=== PATIENT | female | born 1985 | race African-American/Black ===

== ENCOUNTER 2017-04-24 16:32 | Emergency (ER) | payer OTHER ==
--- NOTE | 2017-04-24 17:50 | ED ---
Back Pain - HPI Summary HPI Summary: 31F presents with back and tailbone pain today s/p falling down some stairs. She is able to ambulate. She took ibuprofen for her pain and does not want anything else. She denies any loss of bowel or bladder. She denies any saddle anaesthesia. She denies any pain down the legs. She denies any numbness or tingling. - History of Current Complaint Chief Complaint: EDBackInjuryPain Stated Complaint: FALL/BACK PAIN Time Seen by Provider: 04/24/17 16:55 Hx Last Menstrual Period: 10/20/16 Pain Intensity: 10 - Allergies/Home Medications Allergies/Adverse Reactions: Allergies Allergy/AdvReac Type Severity Reaction Status Date / Time Penicillins [PCN] Allergy Hives/Diff. Verified 09/06/16 12:28 Breathing/I tching Sulfa Antibiotics Allergy Hives Verified 10/22/16 16:02 PMH/Surg Hx/FS Hx/Imm Hx Endocrine/Hematology History: Reports: Hx Thyroid Disease - cysts Denies: Hx Diabetes Cardiovascular History: Denies: Hx Hypertension, Hx Pacemaker/ICD Respiratory History: Denies: Hx Asthma, Hx Chronic Obstructive Pulmonary Disease (COPD) GI History: Denies: Hx Ulcer Sensory History: Denies: Hx Hearing Aid Psychiatric History: Denies: Hx Panic Disorder - Surgical History Surgery Procedure, Year, and Place: ,[place] [facility] [place] Disease History: No Infectious Disease History: Denies: Hx Hepatitis, Hx Human Immunodeficiency Virus (HIV), History Other Infectious Disease, Traveled Outside the [place] in Last 30 Days - Family History Known Family History: Positive: Cardiac Disease - Social History Alcohol Use: None Hx Substance Use: No Substance Use Type: Reports: None Hx Tobacco Use: Yes Smoking Status (MU): Former Smoker Type: Cigarettes Amount Used/How Often: one pack weekly Review of Systems Negative: Fever Negative: Chest Pain Negative: Shortness Of Breath Positive: Myalgia - back pain All Other Systems Reviewed And Are Negative: Yes Physical Exam Triage Information Reviewed: Yes Vital Signs On Initial Exam: Initial Vitals Temp Pulse Resp BP Pulse Ox 98.6 F 97 20 119/67 100 04/24/17 16:47 04/24/17 16:47 04/24/17 16:47 04/24/17 16:47 04/24/17 16:47 Vital Signs Reviewed: Yes Appearance: Positive: Well-Appearing Skin: Positive: Warm, Dry Head/Face: Positive: Normal Head/Face Inspection Eyes: Positive: Normal, Conjunctiva Clear Respiratory/Lung Sounds: Positive: Clear to Auscultation, Breath Sounds Present Cardiovascular: Positive: Normal, RRR Musculoskeletal: Positive: Limited @ - back due to pain, Other - tenderness across lower back and sacrum Diagnostics - Vital Signs Vital Signs Temp Pulse Resp BP Pulse Ox 04/24/17 16:49 98.6 F 99 20 119/67 100 04/24/17 16:47 98.6 F 97 20 119/67 100 - Laboratory Lab Statement: Any lab studies that have been ordered have been reviewed, and results considered in the medical decision making process. - Radiology lumbar Xray Interpretation: No Acute Changes - IMPRESSION: Straightening of the normal lordosis. Mild dextroscoliosis centered at L3-L4. Radiology Interpretation Completed By: Radiologist sacrum Xray Interpretation: No Acute Changes - IMPRESSION: No fracture of the sacrum or coccyx is noted Radiology Interpretation Completed By: Radiologist Back Pain Course/Dx - Course Course Of Treatment: 31F presents with back pain s/p falling down stairs today. She denies any other injury. She is able to ambulate. she took some ibuprofen. neg SLR, tenderness across lower back. xray sacrum normal and lumbar normal. told to ice and continue ibuprofen. patient understands and agrees with plan - Diagnoses Differential Diagnosis/HQI/PQRI: Positive: Fracture, Herniated Disc, Strain, Sprain Provider Diagnoses: Back pain Discharge - Discharge Plan Condition: Good Disposition: HOME Patient Education Materials: Back Pain (ED) Forms: *Work Release Referrals: Zenia Farias MD [Primary Care Provider] - Additional Instructions: Use ibuprofen or Tylenol for pain every 6 hours ice/heat area, move as much as possible Can rest for one day and then need to move back Follow up with primary within 7 days Return to ED if unable to ambulate or develop any new or worsening symptoms
--- NOTE | 2017-04-24 18:05 | RAD ---
Indication: Tailbone injury. 2 views of the sacrum and coccyx demonstrates no fracture. Disc spaces all well-preserved. Pedicles appear intact. IMPRESSION: No fracture of the sacrum or coccyx is noted.
--- NOTE | 2017-04-24 18:09 | RAD ---
Indication: Back pain. 3 views of lumbar spine demonstrates mild dextroscoliosis centered at L3-L4. Vertebral bodies appear normal in height. Straightening of the normal lordosis is noted. Disc spaces all well-preserved. IMPRESSION: Straightening of the normal lordosis. Mild dextroscoliosis centered at L3-L4.
[2017-04-24 19:10] VITALS: BP 108/64
== END 2017-04-24 19:08 | disposition home or self-care (01) ==
LOC: ED 16:32
DX: M54.9 Dorsalgia, unspecified (principal); Z87.891 Personal history of nicotine dependence
CPT/HCPCS: 72100; 72220; 99282

== ENCOUNTER 2017-11-12 14:57 | Emergency (ER) | payer OTHER ==
[2017-11-12 15:17] VITALS: BP 106/55
--- NOTE | 2017-11-12 16:03 | UC ---
Complaint Female HPI - HPI Summary HPI Summary: Patient presents with an unremarkable past medial history. She presents today with complaints of increased white vaginal discharge, and vaginal itching. She states her symptoms developed after condom use, and also she is completing her period. She denies abdominal or pelvic pain, fever, chills, nausea, or vomiting. - History Of Current Complaint Chief Complaint: UCGU Stated Complaint: IRRITATED URINATION Time Seen by Provider: 11/12/17 15:21 Hx Obtained From: Patient Hx Last Menstrual Period: 1week Onset/Duration: Sudden Onset, Lasting Days Timing: Constant Character: Not Applicable Aggravating Factor(s): [place] Associated Signs And Symptoms: Positive: Negative - Risk Factors Ectopic Risk Factor: Negative - Allergies/Home Medications Allergies/Adverse Reactions: Allergies Allergy/AdvReac Type Severity Reaction Status Date / Time Penicillins [PCN] Allergy Hives/Diff. Verified 11/12/17 15:17 Breathing/I tching Sulfa Antibiotics Allergy Hives Verified 11/12/17 15:17 PMH/Surg Hx/FS Hx/Imm Hx Previously Healthy: Yes - Surgical History Surgical History: Yes Surgery Procedure, Year, and Place: ,[place] [facility] [place] - Family History Known Family History: Positive: Cardiac Disease - Social History Occupation: Employed Full-time Lives: Alone Alcohol Use: socially Substance Use Type: None Smoking Status (MU): Former Smoker Type: Cigarettes Amount Used/How Often: one pack weekly Household Exposure Type: Cigarettes - Immunization History Most Recent Influenza Vaccination: declined Most Recent Tetanus Shot: unk Review of Systems Constitutional: Negative Skin: Negative Eyes: Negative ENT: Negative Respiratory: Negative Cardiovascular: Negative Gastrointestinal: Negative Genitourinary: Vaginal/Penile Discharge Motor: Negative Is Patient Immunocompromised?: No All Other Systems Reviewed And Are Negative: Yes Physical Exam Triage Information Reviewed: Yes Appearance: Well-Appearing Vital Signs: Initial Vital Signs Temp 98.3 F 11/12/17 15:11 Pulse 87 11/12/17 15:11 Resp 19 11/12/17 15:11 BP 106/55 11/12/17 15:11 Pulse Ox 100 11/12/17 15:11 Vital Signs Reviewed: Yes Eye Exam: Normal ENT Exam: Normal Neck exam: Normal Neck: Positive: 1 Respiratory Exam: Normal Cardiovascular Exam: Normal Abdominal Exam: Normal Abdomen Description: Positive: Other: - vaginal exam; external genitalia without herpetic rashes, excoration, or abrasions. internal vaginal exam reveals small amount of dark red blood in the vagina. cervix closed, no adenexa tenderness. white plagues noted on vaginal dunlap. cultures obtained and are pending. Musculoskeletal Exam: Normal Neurological Exam: Normal Psychological Exam: Normal Skin Exam: Normal Complaint Female Dx - Course Course Of Treatment: Patient presents with complaints of increased white vaginal discharge. SHe thinks she has a yeast infection. Vaginal exam consistent with yeast infection and the patient was treated with dilfucan 150 mg once. UA/ Urine hcg were obtained and were negative. The results were discussed with the patient. - Differential Dx/Diagnosis Differential Diagnosis/HQI/PQRI: Other - yeast infection Provider Diagnoses: yeast infection Discharge - Discharge Plan Condition: Stable Disposition: HOME Prescriptions: Fluconazole 150 MG (NF) [Diflucan 150 mg (NF)] 150 mg PO ONCE #2 tab Patient Education Materials: Vulvovaginal Candidiasis (ED) Referrals: Rudy Guerrero NP [Primary Care Provider] -
--- NOTE | 2017-11-13 20:45 | UC ---
- Progress Note Progress Note: Pt with + E. Coli in urine - RX Macrobid to pharmacy + Gardnerella - Flagyl to pharmacy - please give pt ETOH precaution sensitivity for urine pending Julianj 11/13/2017 Course/Dx - Course Course Of Treatment: Patient presents with complaints of increased white vaginal discharge. SHe thinks she has a yeast infection. Vaginal exam consistent with yeast infection and the patient was treated with dilfucan 150 mg once. UA/ Urine hcg were obtained and were negative. The results were discussed with the patient.
== END 2017-11-12 16:05 | disposition home or self-care (01) ==
LOC: UCEAST 14:57
DX: B37.3 Candidiasis of vulva and vagina (principal); R30.9 Painful micturition, unspecified; Z88.0 Allergy status to penicillin; Z87.891 Personal history of nicotine dependence
CPT/HCPCS: 81003; 81025; 87077; 87086; 87186; 87480; 87491; 87510; 87591; 87661; 99212; G0463

== ENCOUNTER 2018-01-26 09:36 | Emergency (ER) | payer OTHER ==
[2018-01-26 09:48] VITALS: BP 119/64
--- NOTE | 2018-01-26 14:32 | UC ---
Palomo Rojas Jennifer, scribed for Sofie Cochran DO on 01/26/18 at 1028 . Complaint Female HPI - HPI Summary HPI Summary: The patient is a 32 year old female who complains of vaginal irritation that began four days ago. The patient reports the irritation as burning and itching on the inside and outside of the vagina. She rates the pain a 5/10 today but says the pain is better in the morning and worsens throughout the evening. The patient also reports vaginal discharge that is thick and white but not odorous. She adds there is only dysuria when there is irritation, which is usually in the evening. The patient denies changes in frequency, color, odor of urine, vomiting, fever, and abdominal pain. She additionally complains of nausea for a couple denies. - History Of Current Complaint Chief Complaint: UCGU Stated Complaint: PERSONAL Time Seen by Provider: 01/26/18 10:19 Hx Obtained From: Patient Hx Last Menstrual Period: 01/12/18 Onset/Duration: Sudden Onset, Lasting Days - 4 days, Still Present Timing: Constant Severity Initially: Moderate Severity Currently: Mild Pain Intensity: 5 Pain Scale Used: 0-10 Numeric Character: Burning - Burning, itching Aggravating Factor(s): Nothing Alleviating Factor(s): Nothing Associated Signs And Symptoms: Positive: Vaginal Discharge - thick, white, Nausea - Allergies/Home Medications Allergies/Adverse Reactions: Allergies Allergy/AdvReac Type Severity Reaction Status Date / Time Penicillins Allergy Hives/Diff. Verified 01/26/18 09:40 Breathing/I tching Sulfa (Sulfonamide Allergy Hives Verified 01/26/18 09:40 Antibiotics) PMH/Surg Hx/FS Hx/Imm Hx Previously Healthy: Yes - NEG: HTN, Asthma - Surgical History Surgical History: Yes Surgery Procedure, Year, and Place: ,[place] [facility] [place] - Family History Known Family History: Positive: Cardiac Disease, Hypertension, Other - [place] - Social History Alcohol Use: Occasionally Substance Use Type: Marijuana Smoking Status (MU): Former Smoker Type: Cigarettes Amount Used/How Often: one pack weekly Household Exposure Type: Cigarettes - Immunization History Most Recent Influenza Vaccination: declined Most Recent Tetanus Shot: unk Review of Systems Gastrointestinal: Nausea Genitourinary: Negative - Changes in frequency, color, odor of urine, Dysuria, Vaginal/Penile Burning, Vaginal/Penile Itching, Vaginal/Penile Discharge All Other Systems Reviewed And Are Negative: Yes Physical Exam - Summary Physical Exam Summary: Appearance: Well-Appearing, No Pain Distress, Well-Nourished Eyes: conjunctiva clear, no discharge ENT: Hearing grossly normal, no muffled/hoarse voice. Neck: Normal, Supple Respiratory/Lung Sounds: Lungs clear, Normal breath sounds, No respiratory distress, No accessory muscle use Cardiovascular: RRR, No murmur Abdomen: Nontender, Soft, no guarding, not distended Bowel Sounds: Present Musculoskeletal: Normal Genitourinary: scant amount of discharge, no cervical motion tenderness. Uterus and ovaries are nontender and normal to palpation. No definitive odor. Vaginal mucosa looks mildly irritated. Neurological: Alert, muscle tone normal. Psychiatric:Normal, age appropriate behavior Skin: Normal, Warm, Dry, Normal color Triage Information Reviewed: Yes Vital Signs: Initial Vital Signs Temp 99.2 F 01/26/18 09:41 Pulse 89 01/26/18 09:41 Resp 16 01/26/18 09:41 BP 119/64 01/26/18 09:41 Pulse Ox 95 01/26/18 09:41 Vital Signs Reviewed: Yes Complaint Female Dx - Course Course Of Treatment: Patient will be discharged with prescription for Macrodantin and Pyridium and follow up from PCP. The patient is agreeable with this plan. Medications reviewed. Allergies reviewed. - Differential Dx/Diagnosis Provider Diagnoses: UTI, Vaginal discharge Discharge - Discharge Plan Condition: Stable Disposition: HOME Prescriptions: Nitrofurantoin Macrocrystals* [Macrodantin*] 100 mg PO BID #14 cap Phenazopyridine TAB* [Pyridium TAB*] 200 mdi PO TID PRN #6 tab PRN Reason: Pain Patient Education Materials: Urinary Tract Infection in Women (ED), Vaginal Discharge (ED), Phenazopyridine (By mouth) [place] [facility] [place]] - If Needed Neno LEIVA,Jud Hong [Medical Doctor] - (follow up iin 3-5 days) Additional Instructions: NITROFURANTOIN: You have received a prescription for nitrofurantoin (Macrodantin). This antibiotic is used for urinary tract infections. Persons with G-6-PD (glucose 6-phosphate dehydrogenase) deficiency should not take this medication. Women who are or nursing should notify the physician before taking this medicine. If you have ever had a problem caused by this medication in the past, be sure the physician is aware of it. Common side effects of this medicine include nausea, vomiting, or decreased appetite. Notify your physician if these side effects become severe. Immediately stop this medicine and call the physician if you develop cough , shortness of breath, chest pain, weakness, jaundice (yellow color of the skin and whites of the eyes), or a skin rash. ANYTIME YOU TAKE AN ANTIBIOTIC, IT IS IMPORTANT TO REPLENISH THE BODY'S SUPPLY OF "GOOD BACTERIA." YOU CAN GET GOOD BACTERIA FROM HIGH QUALITY CULTURED FOODS SUCH LOCAL YOGURT, SOUR KRAUT, SAM ELMER, NATURALLY FERMENTED PICKLES AND PROBIOTIC DRINKS. YOU CAN ALSO GET GOOD BACTERIA FROM A PROBIOTIC SUPPLEMENT. We have sent some specimens to the lab. You will be called with abnormal results. The documentation as recorded by the Palomo valdez Jennifer accurately reflects the service I personally performed and the decisions made by me, Sofie Cochran DO.
--- NOTE | 2018-01-27 16:00 | UC ---
- Progress Note Progress Note: Positive gardnerella Positive Yohana Start Diflucan 150mg take once now Start Flagyl 500mg BID for 7 days
== END 2018-01-26 11:43 | disposition home or self-care (01) ==
LOC: UCEAST 09:36
DX: N39.0 Urinary tract infection, site not specified (principal); B96.20 Unspecified Escherichia coli [E. coli] as the cause of diseases classified elsewhere; B37.3 Candidiasis of vulva and vagina; N89.8 Other specified noninflammatory disorders of vagina; Z32.02 Encounter for pregnancy test, result negative; Z88.0 Allergy status to penicillin; Z88.2 Allergy status to sulfonamides; Z87.891 Personal history of nicotine dependence
CPT/HCPCS: 81003; 84702; 87077; 87086; 87186; 87480; 87491; 87510; 87591; 87661; 99212; G0463

== ENCOUNTER 2018-08-09 01:54 | Emergency (ER) | payer OTHER ==
[2018-08-09] MEDS ORDERED: NS 0.9% 1000 ML* 2,000 ML IV ONE (02:02)
[2018-08-09] MEDS ORDERED: Metoclopramide IV* 5 MG/ML 2 ML VIAL IV SLOW PU ONE (02:03)
--- NOTE | 2018-08-09 02:14 | ED ---
GI/ HPI - HPI Summary HPI Summary: This is scribe Nolan Whittington documenting for attending Dr. Mark Garcia MD. This patient is a 32 year old F [place] [facility] [place] chief complaint of hyperemesis since onset of . Pt reports she is 7 weeks . The patient rates the pain 4/10 in severity. Patient denies diarrhea. Pt has had difficulties in prior pregnancies with similar symptoms. Pt has an upcoming doctors apt on August 21. I, Dr. Garcia, personally performed the services described in this documentation as scribed in my presence and it is both accurate and complete. - History of Current Complaint Chief Complaint: EDNauseaVomitDiarrh Time Seen by Provider: 08/09/18 02:02 Stated Complaint: VOMITING BLOOD MIXED IN/THROAT BURNING Hx Obtained From: Patient Hx Last Menstrual Period: 01/12/18 Onset/Duration: Started Weeks Ago Timing: Intermittent Severity: Moderate Current Severity: Moderate Pain Intensity: 4 Associated Signs and Symptoms: Positive: Nausea, Vomiting - Allergy/Home Medications Allergies/Adverse Reactions: Allergies Allergy/AdvReac Type Severity Reaction Status Date / Time Penicillins Allergy Hives/Diff. Verified 08/09/18 03:08 Breathing/I tching Sulfa (Sulfonamide Allergy Hives Verified 08/09/18 03:08 Antibiotics) Home Medications: Home Medications 47/Iron/Folate 1/Dha [Zatean-Pn Dha Capsule] 1 cap PO DAILY 08/09/18 [ History Confirmed 08/09/18] PMH/Surg Hx/FS Hx/Imm Hx Endocrine/Hematology History: Denies: Hx Diabetes, Hx Thyroid Disease Cardiovascular History: Denies: Hx Hypertension, Hx Pacemaker/ICD Respiratory History: Denies: Hx Asthma, Hx Chronic Obstructive Pulmonary Disease (COPD) GI History: Denies: Hx Ulcer Sensory History: Denies: Hx Hearing Aid Psychiatric History: Denies: Hx Panic Disorder - Surgical History Surgery Procedure, Year, and Place: ,[place] [facility] [place] Infectious Disease History: No Infectious Disease History: Denies: Hx Hepatitis, Hx Human Immunodeficiency Virus (HIV), History Other Infectious Disease, Traveled Outside the [place] in Last 30 Days - Family History Known Family History: Positive: Cardiac Disease, Hypertension, Other - [place] - Social History Alcohol Use: Occasionally Hx Substance Use: No Substance Use Type: Reports: Marijuana Hx Tobacco Use: Yes Smoking Status (MU): Former Smoker Type: Cigarettes Amount Used/How Often: one pack weekly Review of Systems Negative: Fever Positive: Vomiting. Negative: Diarrhea All Other Systems Reviewed And Are Negative: Yes Physical Exam - Summary Physical Exam Summary: Appearance: Well-appearing, Well-nourished, lying in bed comfortably Skin: Warm, dry, no obvious rash Eyes: sclera anicteric, no conjunctival pallor ENT: mucous membranes moist, pharynx appears normal Neck: Supple, nontender Respiratory: Clear to auscultation, no signs of respiratory distress Cardiovascular: Normal S1, S2. No murmurs. Normal distal pulses in tibial and radial bilaterally. Abdomen: Soft, nontender, normal active bowel sounds present Musculoskeletal: Normal, Strength/ROM Intact Neurological: A&Ox3, awake and alert, mentation is normal, speech is fluent and appropriate Psychiatric: affect is normal, does not appear anxious or depressed Triage Information Reviewed: Yes Vital Signs On Initial Exam: Initial Vitals Temp Pulse Resp BP Pulse Ox 98.7 F 97 16 128/74 100 08/09/18 01:57 08/09/18 01:57 08/09/18 01:57 08/09/18 01:57 08/09/18 01:57 Vital Signs Reviewed: Yes Diagnostics - Vital Signs Vital Signs Temp Pulse Resp BP Pulse Ox 08/09/18 01:57 98.7 F 97 16 128/74 100 - Laboratory Result Diagrams: 08/09/18 02:06 08/09/18 02:06 Lab Statement: Any lab studies that have been ordered have been reviewed, and results considered in the medical decision making process. GIGU Course/Dx - Course Course Of Treatment: This is a 32-year-old multiparous woman suffering from hyperemesis gravidarum. She was medicated with IV fluids, and Reglan and is markedly improved. She is stable for discharge home - Diagnoses Provider Diagnoses: Hyperemesis gravidarum Discharge - Sign-Out/Discharge Documenting (check all that apply): Patient Departure - discharge - Discharge Plan Condition: Improved Disposition: HOME Prescriptions: Doxylamine/Pyridoxine(NF) [Diclegis (NF)] 2 tab PO QPM #30 tab Metoclopramide TAB* [Reglan TAB*] 10 mg PO Q6H PRN #15 tab PRN Reason: Nausea Patient Education Materials: Hyperemesis Gravidarum (ED) Referrals: No Primary Care Phys,NOPCP [Primary Care Provider] - Additional Instructions: Contact your custom bookbinder if your symptoms do not respond well to the medication prescribed. - Billing Disposition and Condition Condition: IMPROVED Disposition: Home - Attestation Statements Document Initiated by Scribe: Yes Documenting Scribe: Nolan Whittington Provider For Whom Scribe is Documenting (Include Credential): Mark Garcia MD Scribe Attestation: INolan, scribed for Mark Garcia MD on 08/09/18 at 0649. Scribe Documentation Reviewed: Yes Provider Attestation: The documentation as recorded by the Nolan valdez accurately reflects the service I personally performed and the decisions made by me, Mark Garcia MD
[2018-08-09 02:18] LABS: ABS Basophils 0.1 10^3/ul (0-0.2); ABS Eosinophils 0 10^3/ul (0-0.6); ABS Lymphocytes 3.4 10^3/ul (1.0-4.8); ABS Monocytes 0.8 10^3/ul (0-0.8); ABS Neutrophils 5.9 10^3/ul (1.5-7.7); ABS Nucleated RBC 0 10^3/ul; Eosinophil % 0.4 % (0-6); Hematocrit 35 % (35-47); Hemoglobin 11.8 g/dl (12.0-16.0); Lymphocyte % 33.4 % (25-47); Mean Corpuscular HGB Conc 34 g/dl (31-36); Mean Corpuscular Hemoglobin 32 pg (27-31); Mean Corpuscular Volume 93 fL (80-97); Nucleated Red Blood Cells % 0.1; Platelet Count 299 10^3/ul (150-450); Red Blood Count 3.72 10^6/ul (4.00-5.40); Red Cell Distribution Width 13 % (10.5-15); White Blood Count 10.2 10^3/ul (3.5-10.8)
[2018-08-09] MEDS ORDERED: Al Hydrox/Mg Hydrox/Simet LIQ* 30 ML UDC PO ONE (02:24)
[2018-08-09 02:36] LABS: EGFR Non-African American 94.5 (>60)
[2018-08-09 04:43] LABS: Urine Appearance Cloudy; Urine Blood Negative (Negative); Urine Color Yellow; Urine Ketones Trace (Negative); Urine Protein Negative (Negative); Urine Red Blood Cell Trace(0-2/hpf) (Absent); Urine Specific Gravity 1.017 (1.010-1.030); Urine Urobilinogen Negative (Negative); Urine White Blood Cell Trace(0-5/hpf) (Absent)
[2018-08-09 05:16] VITALS: BP 103/60
--- NOTE | 2018-08-12 10:01 | PN ---
Progress Note - Progress Note Date of Service: 08/09/18 Note: Pt. seen in ER 08/09 for vomiting in . Culture today is growing >100, 000 e. coli. I called and spoke with pt. today at 0950. She is currently asymptomatic. Pt. is allergic to PNC (hives and breathing difficulty) will treat with 5 day course of macrobid. Will f.u with OB.
== END 2018-08-09 05:15 | disposition home or self-care (01) ==
LOC: ED 01:54
DX: O21.0 Mild hyperemesis gravidarum (principal); Z3A.01 Less than 8 weeks gestation of pregnancy; Z87.891 Personal history of nicotine dependence; Z88.0 Allergy status to penicillin; Z88.5 Allergy status to narcotic agent
CPT/HCPCS: 36415; 80048; 81003; 81015; 85025; 87077; 87086; 87186; 96361; 96374; 99283; A9270-GY; J2765

== ENCOUNTER 2018-08-19 07:34 | Emergency (ER) | payer OTHER ==
[2018-08-19 07:42] VITALS: BP 126/73
[2018-08-19] MEDS ORDERED: Ondansetron ODT TAB* 4 MG ONE (08:20)
[2018-08-19] MEDS ORDERED: Ondansetron ODT TAB* 4 MG PO ONE (08:22)
--- NOTE | 2018-08-19 12:46 | ED ---
- HPI Summary HPI Summary: Patient is a 32-year-old 9 week female presenting to the ED with light spotting this morning. She states this has never happened to her before. Endorses some light cramping, however this is normal for her. She is also endorsing some nausea and vomiting which has been happening every morning since 6 weeks ago. She denies any constipation, diarrhea. Denies any urinary symptoms or back pain. Symptoms are not worse or better with positioning or PO intake. She states she has a follow-up with her [facility] office tomorrow morning. - History of Current Complaint Chief Complaint: EDOBProblems Stated Complaint: 9 WEEKS PREG/CRAMPING Time Seen by Provider: 08/19/18 07:43 Hx Obtained From: Patient Chief Complaint: Concern for Embryonic Dem Onset/Duration: Started Hours Ago Timing: Constant Severity: Mild Current Severity: None Pain Intensity: 0 Location of Pain: None Character: None Associated Signs and Symptoms: Positive: Negative - Assessment Hx Now: No Hx : 6 Hx Para: 1 SAB: 5 History of Ectopic : No Hx Pelvic Inflammatory Disease: No Vaginal Bleeding Amount: Spotting History of STI/STD: No - Risk Factors Ectopic Risk Factor: Negative Ovarian Torsion Risk Factor: Reproductive Age - Allergies/Home Medications Allergies/Adverse Reactions: Allergies Allergy/AdvReac Type Severity Reaction Status Date / Time Penicillins Allergy Hives/Diff. Verified 08/09/18 03:08 Breathing/I tching Sulfa (Sulfonamide Allergy Hives Verified 08/09/18 03:08 Antibiotics) PMH/Surg Hx/FS Hx/Imm Hx Previously Healthy: Yes Endocrine/Hematology History: Denies: Hx Diabetes, Hx Thyroid Disease Cardiovascular History: Denies: Hx Hypertension, Hx Pacemaker/ICD Respiratory History: Denies: Hx Asthma, Hx Chronic Obstructive Pulmonary Disease (COPD) GI History: Denies: Hx Ulcer Sensory History: Denies: Hx Hearing Aid Psychiatric History: Denies: Hx Panic Disorder - Surgical History Surgery Procedure, Year, and Place: ,TUMOR REMOVED FROM NOSE AT [facility] – [place], D& C - Immunization History Hx Pertussis Vaccination: No Immunizations Up to Date: Yes Infectious Disease History: No Infectious Disease History: Denies: Hx Hepatitis, Hx Human Immunodeficiency Virus (HIV), History Other Infectious Disease, Traveled Outside the [place] in Last 30 Days - Family History Known Family History: Positive: Cardiac Disease, Hypertension, Other - [place] - Social History Occupation: Employed Part-time Lives: Alone Alcohol Use: Occasionally Hx Substance Use: No Substance Use Type: Reports: Marijuana Hx Tobacco Use: Yes Smoking Status (MU): Former Smoker Type: Cigarettes Amount Used/How Often: one pack weekly Review of Systems Constitutional: Negative Negative: Fever, Chills, Fatigue, Skin Diaphoresis Negative: Palpitations, Chest Pain Negative: Shortness Of Breath, Cough Positive: Abdominal Pain. Negative: Vomiting, Diarrhea, Nausea Genitourinary: Negative Positive: no symptoms reported, see HPI Negative: Arthralgia, Myalgia Skin: Negative Neurological: Negative Psychological: Normal All Other Systems Reviewed And Are Negative: Yes Physical Exam - Physical Exam Triage Information Reviewed: Yes Vital Signs Reviewed: Yes Appearance: Positive: Well-Appearing, Well-Nourished Skin: Positive: Warm, Skin Color Reflects Adequate Perfusion Head/Face: Positive: Normal Head/Face Inspection Eyes: Positive: EOMI, DANYEL, Conjunctiva Clear Neck: Positive: Supple Respiratory/Lung Sounds: Positive: Clear to Auscultation, Breath Sounds Present Cardiovascular: Positive: RRR, Pulses are Symmetrical in both Upper and Lower Extremities Bowel Sounds: Positive: Present Musculoskeletal: Positive: Normal, Strength/ROM Intact Neurological: Positive: Sensory/Motor Intact, Alert, Oriented to Person Place, Time Psychiatric: Positive: Normal, Affect/Mood Appropriate AVPU Assessment: Alert Diagnostics - Vital Signs Vital Signs Temp Pulse Resp BP Pulse Ox 08/19/18 09:20 97 F 80 16 126/73 99 08/19/18 07:40 97 F 80 16 126/73 99 - Laboratory Lab Statement: Any lab studies that have been ordered have been reviewed, and results considered in the medical decision making process. Course/Dx - Course Course Of Treatment: During the course treatment, the patient is evaluated for light abdominal cramping bilaterally and one episode of light spotting this morning. She states never happened to her before. heart tones obtained at 168. She is given a Zofran in the ED with good relief of her nausea and vomiting. This was prescribed to her, however precautions are given and she is to continue to take Reglan as first line. - Diagnoses Provider Diagnoses: Spotting affecting in first trimester Discharge - Sign-Out/Discharge Documenting (check all that apply): Patient Departure - Discharge Plan Condition: Stable Disposition: HOME Prescriptions: Ondansetron ODT TAB* [Zofran 4 MG Odt TAB*] 4 mg PO Q6H PRN #30 tab.odt MDD 4 PRN Reason: Nausea Patient Education Materials: Nausea and Vomiting in (ED) Referrals: No Primary Care Phys,NOPCP [Primary Care Provider] - - Billing Disposition and Condition Condition: STABLE Disposition: Home
== END 2018-08-19 09:20 | disposition home or self-care (01) ==
LOC: ED 07:34
DX: O46.91 Antepartum hemorrhage, unspecified, first trimester (principal); Z3A.09 9 weeks gestation of pregnancy; R10.9 Unspecified abdominal pain; Z88.0 Allergy status to penicillin; Z87.891 Personal history of nicotine dependence
CPT/HCPCS: 99282; A9270-GY

== ENCOUNTER 2018-10-13 12:33 | Emergency (ER) | payer OTHER ==
[2018-10-13 12:51] VITALS: BP 111/53
--- NOTE | 2018-10-13 13:27 | UC ---
Hand/Wrist HPI - HPI Summary HPI Summary: 1 week ago was playing with her daughter when she jammed her right thumb. Has had pain in that thumb since then. Also complains of pain between the left fourth and fifth fingers after jamming her hand on a door about 2 weeks ago. Unable to make a full fist. No significant swelling. Has not taken anything for pain. - History Of Current Complaint Chief Complaint: UCUpperExtremity Stated Complaint: FINGER INJURY Time Seen by Provider: 10/13/18 13:15 Hx Obtained From: Patient Hx Last Menstrual Period: 01/12/18 Onset/Duration: Sudden Onset, Lasting Weeks, Still Present Severity Initially: Moderate Severity Currently: Moderate Pain Intensity: 4 Pain Scale Used: 0-10 Numeric Character Of Pain: Sharp Aggravating Factor(s): Movement Alleviating Factor(s): Nothing - Allergies/Home Medications Allergies/Adverse Reactions: Allergies Allergy/AdvReac Type Severity Reaction Status Date / Time Penicillins Allergy Hives/Diff. Verified 10/13/18 12:51 Breathing/I tching Sulfa (Sulfonamide Allergy Hives Verified 10/13/18 12:51 Antibiotics) PMH/Surg Hx/FS Hx/Imm Hx Previously Healthy: Yes - Surgical History Surgical History: Yes Surgery Procedure, Year, and Place: ,[place] [facility] [place] - Family History Known Family History: Positive: Cardiac Disease, Hypertension, Other - [place] - Social History Alcohol Use: None Substance Use Type: None Smoking Status (MU): Former Smoker Type: Cigarettes Amount Used/How Often: one pack weekly Household Exposure Type: Cigarettes - Immunization History Most Recent Influenza Vaccination: declined Most Recent Tetanus Shot: unk Review of Systems All Other Systems Reviewed And Are Negative: Yes Constitutional: Positive: Negative Skin: Positive: Negative Respiratory: Positive: Negative Cardiovascular: Positive: Negative Gastrointestinal: Positive: Negative Musculoskeletal: Positive: Arthralgia, Decreased ROM Physical Exam Triage Information Reviewed: Yes Appearance: Well-Appearing, No Pain Distress, Well-Nourished Vital Signs: Initial Vital Signs Temp 98.7 F 10/13/18 12:46 Pulse 95 10/13/18 12:46 Resp 18 10/13/18 12:46 BP 111/53 10/13/18 12:46 Pulse Ox 100 10/13/18 12:46 Vital Signs Reviewed: Yes Eyes: Positive: Conjunctiva Clear ENT: Positive: Hearing grossly normal Neck: Positive: Supple Respiratory: Positive: No respiratory distress, No accessory muscle use Cardiovascular: Positive: Pulses Normal Abdomen Description: Negative: Soft Musculoskeletal: Positive: No Edema, ROM Limited @ - flexion left 4th, 5th fingers, right thumb, Other: - TTP RIGHT 1ST MTP JOINT AND LEFT 4TH INTERDIGITAL SPACE Neurological: Positive: Alert Psychological: Positive: Age Appropriate Behavior Skin: Negative: Rashes Diagnostics - Radiology RIGHT THUMB XRAY Radiology Interpretation Completed By: Radiologist Summary of Radiographic Findings: UNREMARKABLE No standard instances Radiology Interpretation Completed By: Radiologist Summary of Radiographic Findings: UNREMARKABLE Hand/Wrist Course/Dx - Course Course Of Treatment: PATIENT IS 17 WEEKS . DISCUSSED LOW SUSPICION FOR FRACTURE. MORE LIKELY TO BE STRAIN/SPRAIN WITH PROTRACTED COURSE OF RECOVERY GIVEN RELATIVE INABILITY TO REST THE INJURED AREA. DISCUSSED RISK OF RADIATION EXPOSURE FROM X-RAYS TO FETUS. PATIENT WOULD LIKE TO GO AHEAD WITH X-RAYS. CONSENT FORM SIGNED. XRAYS UNREMARKABLE. SPLINT AND BUTCH FOR COMFORT. F/U ORTHO. - Differential Dx/Diagnosis Provider Diagnosis: Sprain of right thumb, Contusion of left hand Discharge - Sign-Out/Discharge Documenting (check all that apply): Patient Departure All imaging exams completed and their final reports reviewed: Yes - Discharge Plan Condition: Stable Disposition: HOME Patient Education Materials: Contusion in Adults (ED), Finger Sprain (ED) Referrals: Maeve Demarco MD [Medical Doctor] - 1 Week Additional Instructions: X-RAYS TODAY UNREMARKABLE. WEAR THE SPLINT ON YOUR RIGHT HAND TO HELP PROTECT YOUR THUMB. BUTCH WRAP ON YOUR LEFT HAND TO HELP PROTECT YOUR INJURY ON THAT SIDE. FOLLOW-UP WITH ORTHOPEDICS WITHIN A WEEK FOR FURTHER EVALUATION OF YOUR SYMPTOMS. REST MUCH ABLE. - Billing Disposition and Condition Condition: STABLE Disposition: Home
== END 2018-10-13 14:25 | disposition home or self-care (01) ==
LOC: UCEAST 12:33
DX: S63.601A Unspecified sprain of right thumb, initial encounter (principal); S60.222A Contusion of left hand, initial encounter; W51.XXXA Accidental striking against or bumped into by another person, initial encounter; Y92.9 Unspecified place or not applicable; Z88.0 Allergy status to penicillin; Z88.1 Allergy status to other antibiotic agents; Z87.891 Personal history of nicotine dependence
CPT/HCPCS: 99213; G0463

== ENCOUNTER 2018-11-04 09:12 | Emergency (ER) | payer OTHER ==
[2018-11-04 09:24] VITALS: BP 106/67
--- NOTE | 2018-11-04 10:32 | UC ---
Complaint Female HPI - HPI Summary HPI Summary: PATIENT IS 20 WEEKS AND HAD A TRANSVAGINAL ULTRASOUND 1 WEEK AGO. A LATEX COVERING WAS USED ON THE ULTRASOUND WAND. PATIENT HAS A LATEX ALLERGY. THE NEXT DAY SHE DEVELOPED VAGINAL IRRITATION AND ITCHING. DENIES ANY SIGNIFICANT VAGINAL DISCHARGE. NO SWELLING OR FEVERS. NO SKIN RASHES. STATES HER SYMPTOMS HAVE ACTUALLY IMPROVED OVER THE PAST COUPLE OF DAYS. NO URINARY SX. - History Of Current Complaint Chief Complaint: UCGU Stated Complaint: ALLERGIC REACTION- LATEX Time Seen by Provider: 11/04/18 09:58 Hx Obtained From: Patient Hx Last Menstrual Period: 06/28/18 Onset/Duration: Gradual Onset, Lasting Days, Still Present - BUT BETTER Timing: Constant Severity Initially: Moderate Severity Currently: Moderate Pain Intensity: 0 Pain Scale Used: 0-10 Numeric Character: Burning - ITCHING Aggravating Factor(s): Nothing Alleviating Factor(s): Nothing Associated Signs And Symptoms: Negative: Fever, Back Pain, Vaginal Bleeding/ Discharge, Vaginal Discharge, Nausea, Vomiting(# Of Episodes =), Genital Blisters - Allergies/Home Medications Allergies/Adverse Reactions: Allergies Allergy/AdvReac Type Severity Reaction Status Date / Time Latex, Natural Rubber Allergy Rash Verified 11/04/18 09:20 Penicillins Allergy Hives/Diff. Verified 11/04/18 09:20 Breathing/I tching Sulfa (Sulfonamide Allergy Hives Verified 11/04/18 09:20 Antibiotics) PMH/Surg Hx/FS Hx/Imm Hx Previously Healthy: Yes - Surgical History Surgical History: Yes Surgery Procedure, Year, and Place: ,TUMOR REMOVED FROM NOSE AT [facility] – [place], D& C - Family History Known Family History: Positive: Cardiac Disease, Hypertension, Other - [place] - Social History Alcohol Use: None Substance Use Type: None Smoking Status (MU): Former Smoker Type: Cigarettes Amount Used/How Often: one pack weekly Household Exposure Type: Cigarettes - Immunization History Most Recent Influenza Vaccination: declined Most Recent Tetanus Shot: unk Review of Systems All Other Systems Reviewed And Are Negative: Yes Constitutional: Positive: Negative Skin: Positive: Negative Respiratory: Positive: Negative Cardiovascular: Positive: Negative Gastrointestinal: Positive: Negative Genitourinary: Positive: Vaginal/Penile Itching. Negative: Dysuria, Vaginal/ Penile Discharge, Abnormal Bleeding Physical Exam Triage Information Reviewed: Yes Appearance: Well-Appearing, No Pain Distress, Well-Nourished Vital Signs: Initial Vital Signs Temp 98.8 F 11/04/18 09:20 Pulse 100 11/04/18 09:20 Resp 14 11/04/18 09:20 BP 106/67 11/04/18 09:20 Pulse Ox 98 11/04/18 09:20 Vital Signs Reviewed: Yes Eyes: Positive: Conjunctiva Clear ENT: Positive: Hearing grossly normal Neck: Positive: Supple Respiratory: Positive: No respiratory distress, No accessory muscle use Cardiovascular: Positive: Pulses Normal Abdomen Description: Positive: Nontender, Soft Pelvic Exam: Positive: Speculum Exam Normal - NO RASH, LESIONS OR SWELLING, No Cerv. Motion Tender, Discharge - SCANT WHITE D/C IN VAGINAL VAULT Musculoskeletal: Positive: No Edema Neurological: Positive: Alert Psychological: Positive: Age Appropriate Behavior Skin: Negative: Rashes Complaint Female Dx - Course Course Of Treatment: PATIENT'S VAGINITIS MAY BE A RESULT OF LATEX REACTION SHE HAD A TRANSVAGINAL ULTRASOUND 1 WEEK AGO. SHE REPORTS HER SYMPTOMS ARE ALREADY IMPROVING. HAVE RECOMMENDED SHE TAKE CLARITIN DAILY UNTIL SYMPTOMS ARE RESOLVED. SWAB TAKEN FOR VAGINITIS. WILL TREAT IF NEEDED BASED ON RESULTS. - Differential Dx/Diagnosis Provider Diagnosis: Vaginitis Discharge - Sign-Out/Discharge Documenting (check all that apply): Patient Departure All imaging exams completed and their final reports reviewed: No Studies - Discharge Plan Condition: Stable Disposition: HOME Patient Education Materials: Vaginitis (ED) Referrals: No Primary Care Phys,NOPCP [Primary Care Provider] - Additional Instructions: SCANT VAGINAL DISCHARGE SEEN ON PELVIC EXAM TODAY. THIS COULD SIMPLY BE PHYSIOLOGIC DISCHARGE ASSOCIATED WITH . SWAB TAKEN FOR VAGINITIS. WE WILL CALL YOU WITH ANY ABNORMAL RESULTS AND IF TREATMENT NEEDS TO BE INITIATED. TAKE YOUR ANTIHISTAMINE DAILY UNTIL YOUR SYMPTOMS ARE RESOLVED. FOLLOW-UP WITH YOUR OB SCHEDULED. GO TO THE ED WITHOUT FAIL IF YOUR SYMPTOMS WORSEN. - Billing Disposition and Condition Condition: STABLE Disposition: Home
--- NOTE | 2018-11-05 09:34 | UC ---
- Progress Note Progress Note: Vaginal results from November 04, 2018 come back positive for Gardnerella and Yohana. Negative for Trichomonas. Patient is not on any medications. She is 20 weeks . I'm going to prescribe Flagyl 500 mg by mouth twice a day 7 days and and miconazole vaginal once a day for 7 days. Nursing to call patient to let her know results and the prescription is been called in and the patient should follow-up with her [employer]. Course/Dx - Diagnoses Provider Diagnoses: Vaginitis Discharge - Sign-Out/Discharge Documenting (check all that apply): Patient Departure All imaging exams completed and their final reports reviewed: No Studies - Discharge Plan Condition: Stable Disposition: HOME Prescriptions: metroNIDAZOLE [Flagyl] 500 mg PO BID #14 tablet Miconazole Nitrate 1 applic VAGINAL DAILY 7 Days #7 applic Patient Education Materials: Vaginitis (ED) Referrals: No Primary Care Phys,NOPCP [Primary Care Provider] - Additional Instructions: SCANT VAGINAL DISCHARGE SEEN ON PELVIC EXAM TODAY. THIS COULD SIMPLY BE PHYSIOLOGIC DISCHARGE ASSOCIATED WITH . SWAB TAKEN FOR VAGINITIS. WE WILL CALL YOU WITH ANY ABNORMAL RESULTS AND IF TREATMENT NEEDS TO BE INITIATED. TAKE YOUR ANTIHISTAMINE DAILY UNTIL YOUR SYMPTOMS ARE RESOLVED. FOLLOW-UP WITH YOUR OB SCHEDULED. GO TO THE ED WITHOUT FAIL IF YOUR SYMPTOMS WORSEN. - Billing Disposition and Condition Condition: STABLE Disposition: Home
== END 2018-11-04 10:52 | disposition home or self-care (01) ==
LOC: UCEAST 09:12
DX: O23.591 Infection of other part of genital tract in pregnancy, first trimester (principal); Z3A.20 20 weeks gestation of pregnancy; Z88.0 Allergy status to penicillin; Z91.040 Latex allergy status; Z88.2 Allergy status to sulfonamides; Z87.891 Personal history of nicotine dependence
CPT/HCPCS: 87480; 87510; 87660; 99212; G0463

== ENCOUNTER 2019-01-21 09:35 | Emergency (ER) | payer OTHER ==
[2019-01-21] MEDS ORDERED: Metoclopramide IV* 5 MG/ML 2 ML VIAL IV ONE (12:09)
[2019-01-21] MEDS ORDERED: NS 0.9% 1000 ML** 1,000 ML IV ONE ×2 (12:09→13:09)
[2019-01-21 13:51] VITALS: BP 124/66
--- NOTE | 2019-01-26 07:00 | ED ---
Nausea/Vomiting/Diarrhea HPI - HPI Summary HPI Summary: Patient is a 33-year-old 31 week female, with a due date is 04/04/19 presenting to the ED with request for IV fluids. She states she has been having nausea and vomiting with this and is endorsing vomiting at least once per day every day for the past several weeks. She denies any urinary symptoms, abdominal pain, back pain, vaginal bleeding. Continues to endorse good movement. She declines medications on arrival. - History of Current Complaint Chief Complaint: EDNauseaVomitDiarrh Stated Complaint: VOMITING DAILY AND 31WKS PREG NH PT Time Seen by Provider: 01/21/19 12:09 Hx Obtained From: Patient Hx Last Menstrual Period: 06/28/18 ?: No Onset/Duration: Sudden Onset Timing: Constant Severity Initially: Mild Severity Currently: Mild Pain Intensity: 0 Pain Scale Used: 0-10 Numeric Aggravating Factor(s): Food Alleviating Factor(s): Nothing Nausea/Vomiting Presence: Nauseated, Vomiting Vomiting Frequency: Daily Nausea/Vomiting Duration: > 7 days Diarrhea Presence: No - Risk Factors Influenza Risk Factors: Negative - Allergies/Home Medications Allergies/Adverse Reactions: Allergies Allergy/AdvReac Type Severity Reaction Status Date / Time Latex, Natural Rubber Allergy Rash Verified 01/21/19 09:41 Penicillins Allergy Hives/Diff. Verified 01/21/19 09:41 Breathing/I tching Sulfa (Sulfonamide Allergy Hives Verified 01/21/19 09:41 Antibiotics) PMH/Surg Hx/FS Hx/Imm Hx Previously Healthy: Yes Endocrine/Hematology History: Denies: Hx Diabetes, Hx Thyroid Disease Cardiovascular History: Denies: Hx Hypertension, Hx Pacemaker/ICD Respiratory History: Denies: Hx Asthma, Hx Chronic Obstructive Pulmonary Disease (COPD) GI History: Denies: Hx Ulcer Psychiatric History: Denies: Hx Panic Disorder - Surgical History Surgery Procedure, Year, and Place: ,TUMOR REMOVED FROM NOSE AT [facility] – [place], D& C - Immunization History Hx Pertussis Vaccination: No Immunizations Up to Date: Yes Infectious Disease History: No Infectious Disease History: Denies: Hx Hepatitis, Hx Human Immunodeficiency Virus (HIV), History Other Infectious Disease, Traveled Outside the [place] in Last 30 Days - Family History Known Family History: Positive: Cardiac Disease, Hypertension, Other - [place] - Social History Occupation: Unemployed Lives: With Family Alcohol Use: None Hx Substance Use: No Substance Use Type: Reports: None Hx Tobacco Use: Yes Smoking Status (MU): Former Smoker Type: Cigarettes Amount Used/How Often: one pack weekly Review of Systems Negative: Fever, Chills, Fatigue, Skin Diaphoresis Negative: Palpitations, Chest Pain Negative: Shortness Of Breath, Cough Positive: Vomiting, Nausea. Negative: Diarrhea Genitourinary: Negative Positive: no symptoms reported, see HPI Negative: Arthralgia, Myalgia Neurological: Negative All Other Systems Reviewed And Are Negative: Yes Physical Exam Triage Information Reviewed: Yes Vital Signs On Initial Exam: Initial Vitals Temp Pulse Resp BP Pulse Ox 98.2 F 106 18 126/69 99 01/21/19 09:39 01/21/19 09:39 01/21/19 09:39 01/21/19 09:39 01/21/19 09:39 Vital Signs Reviewed: Yes Appearance: Positive: Well-Appearing, Well-Nourished Skin: Positive: Warm, Skin Color Reflects Adequate Perfusion Head/Face: Positive: Normal Head/Face Inspection Eyes: Positive: EOMI, DANYEL, Conjunctiva Clear Neck: Positive: Supple, Nontender, No Lymphadenopathy Respiratory/Lung Sounds: Positive: Clear to Auscultation, Breath Sounds Present Cardiovascular: Positive: RRR, Pulses are Symmetrical in both Upper and Lower Extremities Musculoskeletal: Positive: Normal, Strength/ROM Intact Neurological: Positive: Speech Normal Psychiatric: Positive: Affect/Mood Appropriate AVPU Assessment: Alert Diagnostics - Vital Signs Vital Signs Temp Pulse Resp BP Pulse Ox 01/21/19 13:48 97.2 F 70 12 124/66 98 01/21/19 09:39 98.2 F 106 18 126/69 99 - Laboratory Lab Statement: Any lab studies that have been ordered have been reviewed, and results considered in the medical decision making process. Naus/Vom/Diarrhea Course/Dx - Course Course Of Treatment: Is evaluated for nausea and vomiting of . She is declining medications on arrival and states she would only like IV fluids. She denies any abdominal pain. Denies any vaginal bleeding or discharge. She states this is an abnormal . She is currently 31 weeks. She is given 2 L fluids in the ED with good relief and she denies any nausea at this time. She is requesting discharge. - Differential Dx/Diagnosis Provider Diagnosis: Nausea & vomiting Condition At Discharge: Stable Discharge - Sign-Out/Discharge Documenting (check all that apply): Patient Departure Patient Received Moderate/Deep Sedation with Procedure: No - Discharge Plan Condition: Stable Disposition: HOME Patient Education Materials: Nausea and Vomiting in (ED) Referrals: Young Yang MD [Primary Care Provider] - Additional Instructions: Drink plenty of fluids Follow up with OBGYN May return to the ED if you develop worsening symptoms - Billing Disposition and Condition Condition: STABLE Disposition: Home
== END 2019-01-21 13:48 | disposition home or self-care (01) ==
LOC: ED 09:35
DX: R11.2 Nausea with vomiting, unspecified (principal); Z88.0 Allergy status to penicillin; Z88.2 Allergy status to sulfonamides; Z87.891 Personal history of nicotine dependence; Z34.93 Encounter for supervision of normal pregnancy, unspecified, third trimester; Z3A.31 31 weeks gestation of pregnancy
CPT/HCPCS: 96361; 96374; 99281

== ENCOUNTER 2019-03-24 07:45 | Inpatient (IN) | payer OTHER ==
[2019-03-28] MEDS ORDERED: Buffered Lidocaine 1% SYRIN* 1 ML/SYRINGE INTRADERM ONE (17:31)
[2019-03-29] MEDS ORDERED: Lactated Ringers 1000 ML Bag* 1,000 ML IV SCH ×2 (06:00→10:00)
[2019-03-29] MEDS ORDERED: Sodium Citrate/Citric Acid* 15 ML UDC PO ONE (06:00)
[2019-03-29] MEDS ORDERED: ceFOXitin 2 GM IVPREMIX* 2 GM/50 ML BAG IVPB ONE (07:00)
[2019-03-29] MEDS ORDERED: Morphine PF AMP (0.5MG/ML)* 5 MG/10 ML AMP ONE (07:19)
[2019-03-29] MEDS ORDERED: Phenylephrine 40 MCG/ML SYRINGE ONE (07:21)
[2019-03-29] MEDS ORDERED: EPHEDrine (Pressors)* 50 MG/ML VIAL ONE (07:57)
[2019-03-29] MEDS ORDERED: OXYTOCIN* 10 UNITS/ML 1 ML VIAL ONE (08:23)
[2019-03-29] MEDS ORDERED: HYDROmorphone INJ1* 1 MG/ML SYRINGE IV PRN (08:32)
[2019-03-29] MEDS ORDERED: Naloxone* 0.4 MG/ML 1 ML VIAL IV PRN ×2 (08:32)
[2019-03-29] MEDS ORDERED: diPHENhydraMINE IV* 50 MG/ML 1 ml VIAL (BENADRYL) IV PRN ×2 (08:32→08:38)
[2019-03-29] MEDS ORDERED: Ketorolac INJ* 30 MG/ML 1 ML VIAL IV PRN (08:32)
[2019-03-29] MEDS ORDERED: Ondansetron INJ* 2 MG/ML VIAL IV PRN ×2 (08:32→08:38)
[2019-03-29] MEDS ORDERED: oxyCODONE/Acetamin 5/325 MG* TAB PO PRN (08:32)
[2019-03-29] MEDS ORDERED: fentaNYL* 50 MCG/ML 2 ML VIAL (100 MCG VIAL) IV PRN (08:32)
[2019-03-29] MEDS ORDERED: DiMENhydriNATE IV* 50 MG/ML VIAL IV PUSH PRN (08:32)
[2019-03-29] MEDS ORDERED: Acetaminophen TAB* 325 MG PO PRN ×2 (08:32→12:30)
[2019-03-29] MEDS ORDERED: Ondansetron INJ* 2 MG/ML VIAL ONE (08:35)
[2019-03-29] MEDS ORDERED: Midazolam* 1 MG/ML 2 ML VIAL (2 MG) ONE (08:36)
[2019-03-29] MEDS ORDERED: Nalbuphine* 10 MG/ML 1 ML VIAL IV PRN (08:38)
[2019-03-29] MEDS ORDERED: HYDROcodone/ACETAMIN 5-325 MG* 1 TAB PO PRN (08:38)
[2019-03-29] MEDS ORDERED: Glycerin ADULT SUPP PR PRN (09:16)
[2019-03-29] MEDS ORDERED: Dibucaine 1% 28.35 GM TUBE PR PRN (09:16)
[2019-03-29] MEDS ORDERED: Witch Hazel PAD* JAR TOPICAL PRN (09:16)
[2019-03-29] MEDS ORDERED: Zolpidem TAB* 5 MG PO PRN (09:16)
[2019-03-29] MEDS ORDERED: Oxytocin in LR* 20 UNITS/1,000 ML BAG IVPB SCH (10:00)
[2019-03-29 10:37] LABS: Urine Benzodiazepine Screen None Detected (None Detect); Urine Opiates Screen None Detected (None Detect)
[2019-03-29] MEDS: Simethicone TAB* 80 MG TAB.CHEW PO SCH ×2 (12:30→18:40)
--- NOTE | 2019-03-29 13:14 | OP ---
OPERATIVE REPORT: DATE OF OPERATION: 03/29/19 DATE OF : 87 SURGEON: Cheo Cazares MD CANCER PROGRAM CONSULTANT: Dominique Pires CNM ANESTHESIA: Spinal. PRE-OP DIAGNOSIS: Previous . POST-OP DIAGNOSES: 1. Previous . 2. Pelvic adhesions. OPERATIVE PROCEDURE: Low transverse section, lysis of adhesions. ESTIMATED BLOOD LOSS: 600 cc. SPECIMEN: None. FINDINGS: Include a viable female, Apgars 8 and 9. Normal appearing tubes and ovaries. Lower uteri ne segment was densely adherent to the anterior abdominal wall and the peritoneum/peritoneal window w as above the uterine incision. DESCRIPTION OF PROCEDURE: The patient was identified and procedure identified as a low transverse ce sarean section. The patient was taken to the operating room, prepped and draped in the usual fashion in the left lateral recumbent position under spinal anesthesia. A Pfannenstiel incision was made in the abdomen and carried down through fat, fascia, and peritoneum. The lower uterine segment was dis sected off the bladder and the anterior peritoneum using sharp dissection. A transverse incision was made in the lower uterine segment and extended laterally using blunt dissection. The above infant w as delivered through the incision with ease. The cord was doubly clamped and cut and the was handed to the awaiting air carrier inspector. Cord blood was obtained. Placenta was delivered spontaneously. Uterus was actually brought out through the upper incision with some distortion from the adhesions. It was closed using 0 Polysorb in a running fashion down to the left angle. The left angle was act ually gaped slightly. This was easier, visualized once the uterus was placed back in the abdominal c avity. This angle was then suture closed using 0 Polysorb and 3-0 Polysorb and a second layer was use d to imbricate the first layer. Good hemostasis was verified in the intraperitoneal cavity, the [place] toneum. Good hemostasis was verified and achieved and Interceed was placed in the lower uterine segm ent to prevent further adhesions to the anterior abdominal wall. The peritoneum was then closed usin g 3-0 Polysorb in a running fashion. Good hemostasis was achieved in the subrectus layers. The fasc ia was closed using 0 Polysorb in a running fashion. Good hemostasis was achieved in the subcu. Tank Builder Helper ious irrigation was utilized and suctioned out and the skin was closed with 4-0 Monocryl in a subcuti cular fashion. All sponge and instrument counts were correct and the patient returned to the recover y room in stable condition. [id number]/[id number] #: [id number]
[2019-03-29] MEDS: Ketorolac INJ* 30 MG/ML 1 ML VIAL IV PRN (15:26)
[2019-03-29] MEDS: Docusate CAP* 100 MG PO SCH (15:37)
[2019-03-30] MEDS ORDERED: oxyCODONE/Acetamin 5/325 MG* TAB PO PRN ×2
[2019-03-30] MEDS: Ketorolac INJ* 30 MG/ML 1 ML VIAL IV PRN ×2 (03:07→12:14)
[2019-03-30] MEDS: Simethicone TAB* 80 MG TAB.CHEW PO SCH ×5 (03:07→21:12)
[2019-03-30 06:42] LABS: ABS Lymphocytes 1.9 10^3/ul (1.0-4.8); ABS Monocytes 1.1 10^3/ul (0-0.8); ABS Neutrophils 7.5 10^3/ul (1.5-7.7); Eosinophil % 0.4 %; Hematocrit 27 % (35-47); Hemoglobin 9.1 g/dL (12.0-16.0); Lymphocyte % 17.7 %; Mean Corpuscular HGB Conc 34 g/dL (31-36); Mean Corpuscular Hemoglobin 31 pg (27-31); Mean Corpuscular Volume 91 fL (80-97); Mean Platelet Volume 7.6 fL (7.4-10.4); Platelet Count 234 10^3/uL (150-450); Red Blood Count 2.91 10^6 /uL (3.70-4.87); Red Cell Distribution Width 13 % (10.5-15); White Blood Count 10.5 10^3/uL (3.5-10.8)
[2019-03-30] MEDS: Docusate CAP* 100 MG PO SCH ×4 (07:25→21:12)
[2019-03-30] MEDS: Ferrous Gluconate TAB* 324 MG TAB PO SCH ×2 (08:44→21:12)
[2019-03-30] MEDS ORDERED: Tetan/Diph/Pertus SYR(Tdap)* 0.5 ML SYR(BOOSTRIX) use SYR IM ONE (09:00)
[2019-03-30] MEDS: Ibuprofen TAB* 600 MG PO PRN (18:54)
[2019-03-31] MEDS: Ibuprofen TAB* 600 MG PO PRN ×3 (01:38→17:34)
[2019-03-31] MEDS: Acetaminophen TAB* 325 MG PO PRN ×4 (01:38→21:38)
[2019-03-31] MEDS: Ferrous Gluconate TAB* 324 MG TAB PO SCH ×2 (09:00→21:38)
[2019-03-31] MEDS: Docusate CAP* 100 MG PO SCH ×3 (09:14→21:37)
[2019-03-31] MEDS: Simethicone TAB* 80 MG TAB.CHEW PO SCH ×4 (09:14→21:38)
[2019-04-01] MEDS: Ibuprofen TAB* 600 MG PO PRN (00:56)
[2019-04-01] MEDS: Acetaminophen TAB* 325 MG PO PRN (01:53)
[2019-04-01 08:20] VITALS: BP 142/86
[2019-04-01] MEDS: Simethicone TAB* 80 MG TAB.CHEW PO SCH (09:39)
[2019-04-01] MEDS: Ferrous Gluconate TAB* 324 MG TAB PO SCH (09:41)
[2019-04-01] MEDS: Docusate CAP* 100 MG PO SCH (09:41)
== END 2019-04-01 12:42 | disposition home or self-care (01) | DRG 540 ==
LOC: MCHOB 03-29 06:10
PROVIDERS: ADMIT Obstetrics & Gynecology; ATTEND Obstetrics & Gynecology
PROC: 4A1HXCZ Monitoring of Products of Conception, Cardiac Rate, External Approach (ICD-10-PCS; 2019-03-29)
PROC: 10D00Z1 Extraction of Products of Conception, Low, Open Approach (ICD-10-PCS; principal; 2019-03-29 07:45)
DX: O34.211 Maternal care for low transverse scar from previous cesarean delivery (principal); O48.0 Post-term pregnancy; Z3A.40 40 weeks gestation of pregnancy; Z37.0 Single live birth; O99.89 Other specified diseases and conditions complicating pregnancy, childbirth and the puerperium; N73.6 Female pelvic peritoneal adhesions (postinfective); O90.81 Anemia of the puerperium; Z88.0 Allergy status to penicillin; Z88.2 Allergy status to sulfonamides; Z91.040 Latex allergy status
CPT/HCPCS: 36415; 80307; 85025; A9270-GY; J0694; J1885; J2250; J2405; J2590